=== PATIENT | female | born 1985 | race Caucasian/White ===

== ENCOUNTER 2016-11-09 18:11 | Inpatient (IN) | payer OTHER ==
[~2016-11-09] VITALS: Ht 162.6 cm; Wt 61.5 kg
[~2016-11-09 18:11] MED LIST: CLIN-78 PO
[2016-11-09 18:22] VITALS: BP 149/92; PULSE 106; RESP 20; O2SAT 99
--- NOTE | 2016-11-09 19:10 | ED.REPORT ---
HPI-Extremity Problem Upper Date of Service Nov 09, 2016 ED Provider: Debbie Gallegos History of Present Illness: stuck finger on something in carpet 3 days ago right hand 3 finger. now swollen with red streak in palm. primary care is no , unknown tdap. right hand dominant, 8/10 with movement 3/10 with no movement. denies shooting in finger. patient states she want treatment options Nursing Notes Stated Complaint: FINGER LACERATION Chief Complaint: Extremity Trauma Nursing Notes Reviewed: Yes Allergies: Coded Allergies: No Known Allergies (Unverified , 09/16/16) Scheduled Clindamycin (Clindamycin) 300 Mg Capsule 300 MG PO QID General Time Seen by MD: 19:08 Chief Complaint Finger injury right 3 Hx Obtained From: Patient Caused by: Accidental Past Medical History Past Medical History IV drug use- heroin Past Surgical History denies Smoking History Current Every Day Smoker (1 pack a day for 10 years) Social History Alcohol Use: "Social" Drug Use: IV drugs, Other (last use at 3 pm today 11/09/2016) Occupation lives by self, 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 Ambulatory Status Independent Review of Systems Basic Review of Systems Eyes: Vision NL, No discharge ENT: Hearing NL, No pain, No nasal congestion, No pharyngeal pain Respiratory: No shortness of breath, No cough, No wheeze Cardiovascular: No chest pain, No dyspnea on exertion, No orthopnea, No parox noct dyspnea, No palpitations GI: No abdominal pain, No anorexia, No nausea, No vomiting : No dysuria, No frequency Hematologic: No bleeding, No bruising Endocrine: No cold intolerance, No heat intolerance, No weight gain, No weight loss Allergy / Immune: No allergy Psychiatric: Normal thought content Physical Exam Initial Vital Signs Vital Signs (First) Date Time Temp Pulse Resp B/P Pulse Ox O2 Delivery O2 Flow Rate FiO2 11/09/16 18:22 36.9 106 20 149/92 99 Room Air Initial VS: Reviewed, Vital signs abnormal General/Constitutional: Well-developed, Well-nourished Head / Eyes: Atraumatic, Normocephalic, PERRL ENT: Mucous membranes moist, Conjunctiva normal, No scleral icterus Neck: Supple, Non-tender, Full range of motion Respiratory: Breath sounds normal, Clear to auscultation, No respiratory distress Cardiovascular: Regular rate & rhythm, Heart sounds normal, Intact distal pulses Abdomen / GI: Soft, Non-tender, No guarding, No rebound, No distention Back: No CVA tenderness Lymphatic: No lymphadenopathy Lower Extremities: Vascular intact, Neuro intact, No swelling, No tenderness Skin: Warm, Dry, No cyanosis Neurologic: Alert, Oriented, Nonfocal Psychiatric: Mood/affect normal, Behavior normal, Normal thought content General/Constitutional: Awake, Alert, No acute distress Appearance / Presentation: Positive: Appears older than age Respiratory / Chest: Atraumatic, Breath sounds NL, Breath sounds = bilat, No respiratory distress Cardiovascular: Heart rate NL, Regular rhythm, Heart sounds NL, No gallop refusing to show arms right third finger is obviously swollen with erthyma from puncture wound into palm. no obvious floutance, patient does have limited movement but with pain Interpretation & Diagnostics Lab Results Interpretation Result Diagram: 11/09/16195411/09/161954 Test 11/09/16 19:55 White Blood Count 9.5th/mm3 (3.8-10.1) Red Blood Count 4.51mil/mm3 (3.90-5.20) Hemoglobin 11.9g/dL (12.0-15.6) Hematocrit 36.2% (35.0-46.0) Mean Corpuscular Volume 80.3fL (81-100) Mean Corpuscular Hemoglobin 26.4pg (27.0-35.0) Mean Corpuscular Hemoglobin Concent 32.9% (32.0-37.0) Red Cell Distribution Width 15.1% (12.3-15.4) Platelet Count 292bil/L (150-400) Neutrophils (%) (Auto) 71.3% (40-74) Lymphocytes (%) (Auto) 20.8% (14-46) Monocytes (%) (Auto) 6.9% (4-12) Eosinophils (%) (Auto) 0.7% (0-5) Basophils (%) (Auto) 0.2% (0-3) Erythrocyte Sedimentation Rate 31mm/hr (0-32) Sodium Level 138mEq/L (134-144) Potassium Level 4.0mEq/L (3.5-5.2) Chloride Level 100mEq/L (97-108) Carbon Dioxide Level 21mmol/L (18-29) Blood Urea Nitrogen 11mg/dL (6-20) Creatinine 0.62mg/dL (0.57-1.00) Estimat Glomerular Filtration Rate 162mL/min (>59) Glucose Level 105mg/dL (60-99) Calcium Level 9.4mg/dL (8.5-10.1) Total Bilirubin 0.4mg/dL (0.0-1.2) Aspartate Amino Transf (AST/SGOT) 18U/L (0-50) Alanine Aminotransferase (ALT/SGPT) 14U/L (0-32) Alkaline Phosphatase 51U/L (25-150) C-Reactive Protein 4.9mg/dL (0.0-0.5) Total Protein 7.3g/dL (6.4-8.4) Albumin 4.0g/dL (3.4-5.0) X-Ray Interpretation Xray Interpretation: FINDINGS: Bones: No fractures or dislocations. No suspicious bony lesions. Soft tissues: No suspicious soft tissue calcifications. Soft tissue swelling of the third digit. IMPRESSION: No fracture or dislocation. Soft tissue swelling of the third finger. Procedures Peripheral / EJ IV Start Peripheral / EJ IV Start: left internal ej placed by Dr. Fernandez Re-Eval/Medical Decision Med Decision/Clinical Course Discussed with Dr. Fernandez. Also Dr. Eddy and Dr. Montenegro, admit to hospital, NPO after midnight with likely surgery in the am. MONEY ROOM SUPERVISOR to see patient in the hospital for treatment options on discharge. Patient awaitng transport to room. Care turned over to Dr. Fernandez. Discharge & Departure Impression: Primary Impression: Finger infection Disposition: ADMITTED TO HOSPITAL Referrals: NOPCP (PCP) EDSupervising Provider for APC: Raleigh Fernandez MD, Sue ARNP Nov 09, 2016 19:10
[2016-11-09] MEDS ORDERED: cefTRIAXone Inj 1,000 MG, Lidocaine PF 1% Inj 2.1 ML in Syringe 0 EACH IM ONE (19:25)
[2016-11-09] MEDS ORDERED: Vancomycin Inj 1,000 MG in IV Premix 1 EACH IV ONE (19:25)
[2016-11-09] MEDS ORDERED: 0.9% Sodium Chloride 1,000 ML IV ONE (19:25)
[2016-11-09] MEDS ORDERED: TdaP Vaccine 0.5 mL Inj IM ONE (19:30)
[2016-11-09 20:08] LABS: BASOPHILS % (AUTO) 0.2 % (0-3); EOSINOPHILS % (AUTO) 0.7 % (0-5); MONOCYTES % (AUTO) 6.9 % (4-12); Mean Corpuscular Hemoglobin 26.4 pg (27.0-35.0); Mean Corpuscular Volume 80.3 fL (81-100); NEUTROPHILS % (AUTO) 71.3 % (40-74); Platelet Count 292 bil/L (150-400)
--- NOTE | 2016-11-09 20:33 | DRSVH ---
PROCEDURE: X-RAY FINGERS, TWO VIEWS INDICATIONS: finger laceration TECHNIQUE: AP hand, 2 views of the third finger(s) acquired. COMPARISON: None. FINDINGS: Bones: No fractures or dislocations. No suspicious bony lesions. Soft tissues: No suspicious soft tissue calcifications. Soft tissue swelling of the third digit. IMPRESSION: No fracture or dislocation. Soft tissue swelling of the third finger. Dictated by: Didier Hatfield M.D. on 11/09/2016 at 20:31 Approved by: Didier Hatfield M.D. on 11/09/2016 at 20:32
[2016-11-09 20:38] LABS: ERYTHROCYTE SEDIMENTATION RATE 31 mm/hr (0-32)
[2016-11-09] MEDS ORDERED: Polyethylene Glycol (PEG) 17 Gm Powder PO PRN (21:05)
[2016-11-09] MEDS ORDERED: Ondansetron 2 mg/mL 2 mL Inj IVPUSH PRN (21:05)
[2016-11-09] MEDS ORDERED: Alum-Mag Hydrox-Simeth 30 mL Suspension PO PRN (21:05)
[2016-11-09] MEDS ORDERED: Promethazine 25 mg/mL Inj IVPUSH PRN (22:10)
[2016-11-09] MEDS ORDERED: HYDROmorphone 1 mg/mL Inj IVPUSH PRN (22:10)
[2016-11-09] MEDS ORDERED: HYDROmorphone 1 mg/mL Inj IVPUSH ONE (22:20)
--- NOTE | 2016-11-09 22:40 | PCM.HPMED ---
Subjective Date of Service Nov 09, 2016 Primary Provider: Admitting Physician: Primary Care Physician: Xander Attending Physician: Admit Status: From the Emergency Department, Full Admit Chief Complaint: IV drug use and tenosynovitis. . History of Present Illness: Snow Salcedo is a 31-year-old female with past medical history significant for IV heroin use with last use today at 3 PM who presents to [facility] for right third digit pain. She reports that she stuck her right third finger on something in the carpet 3 days ago. She reports that it became painful the next day. She tried to soak it in Epsom salt bath which gave her no relief and she had mild brown exudate from inoculation site. She decided to come to the emergency department as she believed it was getting worse. She now has a swollen third right digit with red streaking to palm. She is right-hand dominant. She reports +8/10 pain with movement and + 3/10 with no movement. She has tried ibuprofen and tramadol without relief. It is unknown when her last Tdap vaccination was given as she has no PCP. She denies headache, chest pain, shortness of breath, abdominal pain, nausea, vomiting, fever, chills, dysuria, diarrhea or constipation. Vital signs in the ER: Temperature 36.9. Pulse 106. Respiratory rate 20. Blood pressure 149/92. Pulse ox 99% on room air. She was given ceftriaxone 1 g 1, vancomycin per pharmacy x 1, and 1L NS. Review of Systems: A comprehensive review of systems was conducted with the patient and found to be negative except as above in the History of Present Illness. . Allergies Coded Allergies: No Known Allergies (Unverified , 09/16/16) Home Medications No scheduled medications. Ibuprofen 600 mg as needed for pain. Tramadol 50 mg every 6 hours as needed for pain. PMH 1. IV heroin use. 2. Tobacco use disorder. 3. Prior MSSA arm abscesses. . Surgical History None. . Family History Mother and father who are healthy. Brother with alcohol abuse history. . Social History Occupation: runs a cleaning business Hx Alcohol Use: Yes (occasional) Hx Substance Use: Yes (IV heroin) Smoking Status: Current Every Day Smoker (1 PPD 12 years) Additional Information She is single and has no children of her own. She was born in [facility] has grown up. Exam Vital Signs Vital Sign - Last Date Time Temp Pulse Resp B/P Pulse Ox O2 Delivery O2 Flow Rate FiO2 11/09/16 18:22 36.9 106 20 149/92 99 Room Air Exam General: Young female lying in bed, shivering, in no acute distress, well- developed, well-nourished, appropriately interactive. HEENT: Normocephalic, atraumatic. External ears without defect. Pupils equal, round, and reactive to light. Anicteric sclerae, moist conjunctivae, and no lid lag. Oropharynx free of erythema and cobble stoning with moist mucosa. Neck: Supple with full range of motion. No lymphadenopathy or thyromegaly. Cardiovascular: Tachycardic, regular rhythm without murmurs, rubs, or gallops appreciated Pulmonary: Clear to auscultation bilaterally with no crackles, wheezes, or rhonchi. Normal respiratory effort with no use of accessory muscles. Abdomen: Soft, nontender, nondistended, bowel sounds present. No hepatosplenomegaly or masses appreciated. Extremities: Right hand erythema and warmth with streaking to palm. Pain with passive and active range of motion of third right digit. Skin: Scattered excoriations throughout upper and lower extremities. Neurological: Cranial nerves grossly intact. Normal muscle strength, tone, and bulk. Reflexes, coordination, and sensory function within normal limits. No known gait impairment. Psychiatric: Normal mood and affect. Alert and oriented to person, place, and time. . Lab and Diagnostics Labs Item Value Date Time Calcium Level 9.4 mg/dL 11/09/161954 Total Bilirubin 0.4 mg/dL 11/09/161954 Aspartate Amino Transf (AST/SGOT) 18 U/L 11/09/161954 Alanine Aminotransferase (ALT/SGPT) 14 U/L 11/09/161954 Alkaline Phosphatase 51 U/L 11/09/161954 C-Reactive Protein 4.9 mg/dL H 11/09/161954 Total Protein 7.3 g/dL 11/09/161954 Albumin 4.0 g/dL 11/09/161954 Result Diagram: 11/09/16195411/09/161954 Microbiology Blood culture 2 pending. . X-Rays, CTs and MRIs X-RAY FINGERS, TWO VIEWS IMPRESSION: No fracture or dislocation. Soft tissue swelling of the third finger. Dictated by: Didier Hatfield M.D. on 11/09/2016 at 20:31 Approved by: Didier Hatfield M.D. on 11/09/2016 at 20:32 . Assessment & Plan Snow Salcedo is a 31-year-old female with past medical history significant for IV heroin use with last use today at 3 PM and skin popping who presents to [facility] for right third digit pain. 1. Acute tenosynovitis of right third digit, present on admission. Active. - Patient presented afebrile with right hand erythema and warmth especially in the right third digit with streaking to palm.Patient has pain with active and passive range of motion. - Patient received Rocephin and vancomycin in the ED and will continue these antibiotics. - Right finger x-ray shows no signs of osteomyelitis. - Continue to elevate arm overnight. - NPO after midnight. - Ordered tramadol, acetaminophen, and ibuprofen as needed for pain. Try and avoid narcotics as this is the patient's underlying issue, however, ordered Dilaudid 1 mg every 4 hours as needed for moderate to severe pain. - Tdap vaccination has been ordered. - Orthopedic hand surgeon, Dr. Bobo, has been consulted and recommends the patient be nothing by mouth overnight for planned surgical debridement in the morning. Chronic problems: IV heroin use, chronic. - Counseled the patient on importance of cessation of drug use and seeking treatment, inpatient versus outpatient. - Ordered hospital social worker evaluation. - Ordered Zofran and promethazine as needed for nausea related to heroin withdrawal. - Ordered Ativan 1 mg every 4 hours as needed for signs of withdrawal (i.e. nausea, vomiting, diarrhea, rhinorrhea, etc.). If the patient continues to show signs and symptoms of withdrawal that are unamenable to Ativan may consider starting methadone 20-30 mg daily and clonidine 0.1 BID. PRN antiemetics: Zofran and promethazine.. PRN bowel regimen: Senna and MiraLAX. PRN analgesics: Tylenol, ibuprofen, tramadol, Dilaudid. PRN anxiolytics: Ativan. High-risk medications: Dilaudid. Patient is admitted under inpatient status with expected length of stay greater than 2 midnights due to severity of presenting symptoms, risk of adverse event, and complexity of treatment plan. Resuscitation Status: CPR: Attempt Resuscitation Attending Statement The patient was seen and examined together with house staff on 11/09/2016 and I agree with the history, exam and plan as outlined in the note above. Ute Vidal DO Nov 09, 2016 21:20 Ada Hicks DO Nov 09, 2016 23:10
[2016-11-09] MEDS ORDERED: Promethazine Inj 25 MG in Dextrose 5% 50 ML IV PRN (22:55)
[2016-11-09 23:03] VITALS: BP 126/67; PULSE 69; RESP 18; O2SAT 100
--- NOTE | 2016-11-09 23:41 | PCM.CONPHA ---
Subjective Date of Service: Nov 09, 2016 Requesting Provider: Ute Vidal DO IV drug use and tenosynovitis. . Reason for Pharmacy Consult: Vancomycin Dosing Objective Vital Signs Date Time Temp Pulse Resp B/P Pulse Ox O2 Delivery O2 Flow Rate FiO2 11/09/16 23:03 37.2 69 18 126/67 100 Room Air 11/09/16 21:38 37.1 91 20 123/69 99 Room Air 11/09/16 18:22 36.9 106 20 149/92 99 Room Air Weight (Kilograms): 61.500 Height (Feet): 5 Height (Inches): 4.00 Test 11/09/16 19:45 11/09/16 19:55 11/09/16 23:14 HCG Beta Subunit 0.500mIU/mL White Blood Count 9.5th/mm3 (3.8-10.1) Red Blood Count 4.51mil/mm3 (3.90-5.20) Hemoglobin 11.9g/dL (12.0-15.6) Hematocrit 36.2% (35.0-46.0) Mean Corpuscular Volume 80.3fL (81-100) Mean Corpuscular Hemoglobin 26.4pg (27.0-35.0) Mean Corpuscular Hemoglobin Concent 32.9% (32.0-37.0) Red Cell Distribution Width 15.1% (12.3-15.4) Platelet Count 292bil/L (150-400) Neutrophils (%) (Auto) 71.3% (40-74) Lymphocytes (%) (Auto) 20.8% (14-46) Monocytes (%) (Auto) 6.9% (4-12) Eosinophils (%) (Auto) 0.7% (0-5) Basophils (%) (Auto) 0.2% (0-3) Erythrocyte Sedimentation Rate 31mm/hr (0-32) Sodium Level 138mEq/L (134-144) Potassium Level 4.0mEq/L (3.5-5.2) Chloride Level 100mEq/L (97-108) Carbon Dioxide Level 21mmol/L (18-29) Blood Urea Nitrogen 11mg/dL (6-20) Creatinine 0.62mg/dL (0.57-1.00) Estimat Glomerular Filtration Rate 162mL/min (>59) Glucose Level 105mg/dL (60-99) Calcium Level 9.4mg/dL (8.5-10.1) Total Bilirubin 0.4mg/dL (0.0-1.2) Aspartate Amino Transf (AST/SGOT) 18U/L (0-50) Alanine Aminotransferase (ALT/SGPT) 14U/L (0-32) Alkaline Phosphatase 51U/L (25-150) C-Reactive Protein 4.9mg/dL (0.0-0.5) Total Protein 7.3g/dL (6.4-8.4) Albumin 4.0g/dL (3.4-5.0) Hold Urine Received (Received) Assessment/Plan Assessment/Plan A: * Vancomycin dosing by pharmacy for 31 y/o woman with tenosynovitis * She received a 1000 mg IV vancomycin dose in the ED * She is also on ceftriaxone * Estimated CrCl is 115 mL/min (Cockcroft & Gault) * Estimated vancomycin half-life is 7 hours and estimated Vd is 43 liters P: * Start the patient on vancomycin 750 mg IV every 8 hours * This dose is estimated to result in a trough of about 15 mcg/mL * Target a vancomycin trough range of 15 - 20 mcg/mL for now * Drawing at trough level prior to the fourth vancomycin dose Thank you. Pharmacy will continue to follow. Moira Kwon, PharmD Moira Kwon Nov 09, 2016 23:41
[2016-11-10] VITALS (9 sets, daily range): BP systolic 95–138; BP diastolic 47–95; PULSE 65–91; RESP 12–20; O2SAT 96–100
--- NOTE | 2016-11-10 00:59 | NUR ---
ADMIT Patient arrived on unit at 2300 via wheelchair, arrived with belongings and a visitor, Radu, whom provides moral support. This RN received report previous to arrival by phone from AVID EDITOR. Behavior contract signed, agreed to treatment. Sharps container removed by housekeeping and security, per protocol. quality assurance assistant oriented patient to bed, lights (including call light), and phone.
[2016-11-10] MEDS ORDERED: MetoCLOpramide 5 mg/mL 2 mL Inj ONE (02:59)
[2016-11-10] MEDS ORDERED: Propofol 10,000 mCg/mL 20 mL Inj ONE (02:59)
[2016-11-10] MEDS ORDERED: Dexamethasone 4 mg/mL Inj ONE (02:59)
[2016-11-10] MEDS ORDERED: Ondansetron 2 mg/mL 2 mL Inj ONE (02:59)
--- NOTE | 2016-11-10 04:08 | NUR ---
BEHAVIOR Patient awoke screaming, "I can't do this!!" This RN spoke with patient and expressed concerns of leaving AMA, educated about possible consequences. Patient calmed down but remains easily agitated.In addition to educating possible consequences of leaving, this RN also educated on the medications given.
[2016-11-10] MEDS ORDERED: fentaNYL-PF 50 mCg/mL 2 mL Inj ONE (04:59)
[2016-11-10] MEDS ORDERED: Ketamine 10 mg/mL 20 mL Inj ONE (04:59)
[2016-11-10] MEDS ORDERED: HYDROmorphone 2 mg/mL Inj ONE (04:59)
[2016-11-10] MEDS ORDERED: 0.9% Sodium Chloride 250 ML ONE (06:18)
[2016-11-10] MEDS: HYDROmorphone 1 mg/mL Inj IVPUSH PRN ×7 (06:39→22:10)
[2016-11-10] MEDS ORDERED: Pantoprazole 4 mg/mL 10 mL Inj IVPUSH SCH (07:30)
[2016-11-10 08:04] LABS: BASOPHILS % (AUTO) 0.4 % (0-3); EOSINOPHILS % (AUTO) 0.8 % (0-5); MONOCYTES % (AUTO) 7.7 % (4-12); Mean Corpuscular Hemoglobin 25.9 pg (27.0-35.0); NEUTROPHILS % (AUTO) 61.8 % (40-74); Platelet Count 332 bil/L (150-400)
[2016-11-10] MEDS ORDERED: Vancomycin Dose per Pharmacist XX SCH (08:30)
[2016-11-10] MEDS ORDERED: cefTRIAXone Inj 1,000 MG in Dextrose 5% Minibag Plus 50 ML IV SCH (08:30)
[2016-11-10] MEDS: Heparin 5,000 Unit/mL Inj SUBQ SCH ×2 (08:30→16:27)
[2016-11-10] MEDS: cloNIDine 0.1 mg Tablet PO PRN ×2 (11:46→22:10)
[2016-11-10] MEDS ORDERED: Lactated Ringer's 500 ML IV PRN (12:56)
[2016-11-10] MEDS ORDERED: Lactated Ringer's 1,000 ML IV SCH (12:56)
--- NOTE | 2016-11-10 12:59 | PCM.HPANE ---
Patient Data Surgeon Admitting Provider:Ada Hicks DO Attending Provider:Ada Hicks DO Primary Care Physician:Nopcp Other Provider: Reason for Visit Tendon Sheath Ifection Ht/WT & BMI Height (Feet): 5 Height (Inches): 4.00 Weight (Kilograms): 61.500 Body Mass Index 23.15 Allergies Coded Allergies: No Known Allergies (Unverified , 09/16/16) Diabetes History Hx Diabetes?: No MRSA MRSA: No Medications Hypertension Medication: No Home Meds Incl Beta Dvaid: No Discontinued Scripts Clindamycin 300 Mg [id number] Mg PO QID 14 Days Ref 0 Prov:Amrit Shah MD 09/16/16 History History of ENT Problems?: No Hx of Heart Problems?: No Cardiovascular History: Denies:: Congestive Heart Failure Hypertension Respiratory History: Positive for:: Asthma (excersise induced) Denies:: Tuberculosis Hx Neurologic Problems?: No Neurological History: Positive for:: Headaches (c/o migraines) Hx of GI Problems?: No Hx of Problems?: No Female Hx: Denies:: Currently Pelvic Inflammatory Problems with Breasts? Musculoskeletal History: Positive for:: Back Injury (bulging disk) Psycho Social History: Positive for:: Anxiety Hx Depression Denies:: Suicide Attempt Hx Surgeries?: No Hx Any Other Health Problems?: No History Blood Transfusions: Positive for:: Accept Blood Products? 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 Hx Alcohol Use: NoHx Substance Use: Yes (Heroin) Smoking Status: Current Every Day Smoker (1 PPD 12 years) Have You Smoked inLast 12 mo: YesApprox How Many Cigarettes/day: 20 Stop/Bang Treated for Sleep Apnea?: No Do You Have a CPAP Machine?: No S-Snoring: Do You Snore Loudly: No T-Tired: feel tired, fatigued: Yes O-Obsered: Observed not breath: Yes P-Blood Pressure: treated: No B- Body Mass Index > 35 kg/m2: No A- Age over 50: No N- Neck Large Circumference: No G- Gender Male: No QUYEN Total Score: 2 Risk Assessment Category Category 1A: Patient has history of documented sleep apnea, and HAS NOT received any narcotic, sedative or anesthesia administration during this stay. Category 1B: Patient has history of documented sleep apnea, and HAS received any narcotic , sedative or anesthesia administration during this stay Category 2: Patient has SUSPECTED Obstructive Sleep Apnea, and HAS received any narcotic , sedative or anesthesia administration during this stay. Category 3: Patient has SUSPECTED Obstructive Sleep Apnea and HAS NOT received narcotic, sedative or anesthesia administration during this stay. Category 4: Outpatient in Procedural Areas with known sleep apnea or who screen positive for High Risk via the STOP/BANG questionnaire. Exam Exam Vital Signs Vital Signs Date Time Temp Pulse Resp B/P Pulse Ox O2 Delivery O2 Flow Rate FiO2 11/10/16 06:25 37.0 85 18 138/95 98 Room Air General Appearance: Oriented X3, Moderate Distress HEENT/AIRWAY: MP 2 Lungs: Coarse Heart: Regular Rate/Rhythm Meds/Labs/Diagnostics Admission Meds Current Medications Vancomycin HCl/ Dextrose 1000 mg/ Premix 200 ml @ 133.333 mls/hr ONCE ONCE IV Last administered on 11/09/16 19:25; Start 11/09/16 at 19:25; Stop 11/09/16 at 20:54; Status DC Sodium Chloride (Normal Saline) 1,000 ml @ 0 mls/hr Q0M ONCE IV Last administered on 11/09/16 19:25; Start 11/09/16 at 19:25; Stop 11/09/16 at 19:30 ; Status DC Lidocaine HCl 1 ml 1 ml STK-MED ONCE .ROUTE Last administered on 11/09/16 19: 45; Start 11/09/16 at 19:45; Stop 11/09/16 at 19:46; Status DC Ceftriaxone Sodium/Dextrose/ Water (Rocephin Inj/ D5W Minibag Plus) 50 ml @ 100 mls/hr Q24 IV Last administered on 11/09/16 20:58; Start 11/10/16 at 08:30 Hydromorphone HCl (Dilaudid Inj) 2 mg ONCE ONCE IVPUSH Last administered on 22:28; Start 11/09/16 at 22:20; Stop 11/09/16 at 22:21; Status DC Pantoprazole (Protonix Inj) 40 mg DAILYAC IVPUSH Last administered on 08:27; Start 11/10/16 at 07:30 Pharmacy Consult 1 ea 1 ea DAILY XX Last administered on 11/10/16 09:13; Start 11/10/16 at 08:30 Vancomycin HCl/ Dextrose/Water (Vancocin Inj/ D5W) 250 ml @ 166.667 mls/hr Q8H IV Last administered on 11/10/16 06:26; Start 11/10/16 at 05:00 Nicotine (Nicoderm 21 mg/ 24 Hr Patch) 1 patch DAILY TOPICAL Last administered on 11/10/16 03:23; Start 11/10/16 at 00:35 Methadone HCl (Dolophine) 20 mg ONCE ONCE PO Last administered on 11/10/16 03 :30; Start 11/10/16 at 00:40; Stop 11/10/16 at 00:42; Status DC Diphenhydramine HCl 25 mg 25 mg ONCE ONCE IVPUSH Last administered on 03:30; Start 11/10/16 at 00:45; Stop 11/10/16 at 00:46; Status DC Sodium Chloride (Normal Saline) 250 ml @ ud STK-MED ONCE .ROUTE Last administered on 11/10/16 06:25; Start 11/10/16 at 06:18; Stop 11/10/16 at 06:20 ; Status DC Labs Test 11/09/16 19:45 11/09/16 19:55 11/09/16 23:14 11/10/16 07:45 HCG Beta Subunit 0.500mIU/mL Erythrocyte Sedimentation Rate 31mm/hr (0-32) Total Bilirubin 0.4mg/dL (0.0-1.2) Aspartate Amino Transf (AST/SGOT) 18U/L (0-50) Alanine Aminotransferase (ALT/SGPT) 14U/L (0-32) Alkaline Phosphatase 51U/L (25-150) C-Reactive Protein 4.9mg/dL (0.0-0.5) Total Protein 7.3g/dL (6.4-8.4) Albumin 4.0g/dL (3.4-5.0) Hold Urine Received (Received) White Blood Count 9.8th/mm3 (3.8-10.1) Red Blood Count 4.41mil/mm3 (3.90-5.20) Hemoglobin 11.4g/dL (12.0-15.6) Hematocrit 35.3% (35.0-46.0) Mean Corpuscular Volume 80.0fL (81-100) Mean Corpuscular Hemoglobin 25.9pg (27.0-35.0) Mean Corpuscular Hemoglobin Concent 32.3% (32.0-37.0) Red Cell Distribution Width 15.2% (12.3-15.4) Platelet Count 332bil/L (150-400) Neutrophils (%) (Auto) 61.8% (40-74) Lymphocytes (%) (Auto) 28.9% (14-46) Monocytes (%) (Auto) 7.7% (4-12) Eosinophils (%) (Auto) 0.8% (0-5) Basophils (%) (Auto) 0.4% (0-3) Sodium Level 142mEq/L (134-144) Potassium Level 4.6mEq/L (3.5-5.2) Chloride Level 109mEq/L (97-108) Carbon Dioxide Level 20mmol/L (18-29) Blood Urea Nitrogen 10mg/dL (6-20) Creatinine 0.67mg/dL (0.57-1.00) Estimat Glomerular Filtration Rate 148mL/min (>59) Glucose Level 123mg/dL (60-99) Calcium Level 8.9mg/dL (8.5-10.1) Plan Impression Patient chart reviewed, patient interviewed and anesthestic plan with risks, benefits, and alternatives discussed, and informed consent obtained. ASA Physical Status: ASA3 Severe Disease Anesthetic Plan: GA Bene/Risks/Altern/Consents: Yes HP Complete Prior to Induction: Yes Edwin Nael MD Nov 10, 2016 12:59
[2016-11-10] MEDS ORDERED: Phenylephrine 10,000 mCg/mL Inj IVPUSH PRN (13:00)
[2016-11-10] MEDS ORDERED: Ondansetron 2 mg/mL 2 mL Inj IVPUSH PRN (13:00)
[2016-11-10] MEDS ORDERED: HYDROmorphone 1 mg/mL Inj IVPUSH PRN (13:00)
[2016-11-10] MEDS ORDERED: Dexamethasone 4 mg/mL Inj IVPUSH PRN (13:00)
[2016-11-10] MEDS ORDERED: EPHEDrine Sulfate 50 mg/mL Inj IVPUSH PRN (13:00)
[2016-11-10] MEDS ORDERED: fentaNYL-PF 50 mCg/mL 2 mL Inj IVPUSH PRN (13:00)
[2016-11-10] MEDS ORDERED: MetoCLOpramide 5 mg/mL 2 mL Inj IVPUSH PRN (13:00)
--- NOTE | 2016-11-10 13:21 | NUR ---
Behavior/OR Pt very agitated and yelling "I can't do this anymore! Get me the fuck out of here, I'm going home!" off and an all day. Pt's friend at bedside and intermittently able to redirect and calm pt. Pt received prn dilaudid, lorazepam, and clonidine as often as needed and orders allowed. Pt up out of bed, pacing in room and in hallway; gait steady. VSS. Pt NPO since 0000. Pt left floor for OR at 1321, report given to RECYCLABLE MATERIALS SORTER.
[2016-11-10] MEDS ORDERED: Lactated Ringer's 1,000 ML IV ONE (13:31)
--- NOTE | 2016-11-10 14:48 | PCM.ANEP1 ---
Post Anesthesia Phase 1 PACU Phase 1 Assessment Date of Service: Nov 09, 2016 Anesthetic Administered: GA Level of Alertness: Awake, talking Pain: No Pain Scale Score: 10 Nausea or Vomiting: No Oxygen Delivery: Room Air Lungs: Coarse Edwin Neal MD Nov 10, 2016 14:48
--- NOTE | 2016-11-10 14:48 | PCM.ANEP2 ---
Post Anesthesia Evaluation ASA/CMS Post Anesthesia VS in Patient's Normal Range?: Yes Resp Stable; Airway Patent?: Yes CV Function & Hydration Stable: Yes Mental Status Recovered?: Yes Pain control Satisfactory?: Yes N/V Control Satisfactory?: Yes Edwin Neal MD Nov 10, 2016 14:48
[2016-11-10] MEDS ORDERED: diphenhydrAMINE 25 mg Capsule PO PRN (14:55)
[2016-11-10] MEDS ORDERED: Magnesium Hydroxide 10 mL Oral Concentration PO PRN (14:55)
[2016-11-10] MEDS ORDERED: Sodium Biphos-Phos 133 mL Enema RECTAL PRN (14:55)
[2016-11-10] MEDS ORDERED: Polyethylene Glycol (PEG) 17 Gm Powder PO PRN (14:55)
--- NOTE | 2016-11-10 15:36 | NUR ---
Social Work: Brief Note Data and Assessment: Patient is a 31 y/o female that admitted for tendon infection. Patient has a history of heroin and crack use. SW unable to complete CD assessment due to patient's behaviors, withdrawal, and patient was off of the floor for surgery later in the day. SW will continue to follow patient. Plan: SW will continue to follow patient and attempt to complete CD assessment when the patient returns to the floor. Risa Park LMSW, NYDIA
[2016-11-10] MEDS: Sodium Chloride LOK Flush 10 mL Syringe IV SCH (16:23)
--- NOTE | 2016-11-10 17:03 | CONS ---
[address] [address] CONSULTATION REPORT PATIENT: RENE VICK : 1985 MR#: [id number] ADMIT: 11/09/2016 JOB ID: [id number] DATE OF SERVICE: 11/10/2016 ORTHOPEDIC CONSULT: CHIEF COMPLAINT: Right hand and middle finger pain and swelling. HISTORY OF PRESENT ILLNESS: This is a 31-year-old, [id number] female that presented yesterday to [facility] with swelling and pain to her hand and specifically her right middle finger. She states that she stuck her middle finger with something in the carpet. She denies that it was a needle and she does utilize heroin and used it just yesterday. She tried to soak the wound in Epsom salt and noticed some purulent drainage. Eventually, the drainage became clear and progressively worsened as far as swelling and pain and thus she presented to the emergency department. She complains mainly of pain to the middle finger with limited motion. She denies any numbness or tingling. She denies any constitutional symptoms. Denies any fever, sweats or chills. Our only treatment has been over the counter medications including ibuprofen and tramadol. She states that the pain is rated 8/10 in severity. She has noticed mild improvement in her symptoms since her hospitalization and being started on IV antibiotics. PAST MEDICAL HISTORY: IV heroin use. PAST SURGICAL HISTORY: Negative. FAMILY HISTORY: Negative and noncontributory. SOCIAL HISTORY: Patient does utilize tobacco, alcohol, as well as heroin. She last used heroin yesterday. REVIEW OF SYSTEMS: The patient denies any fevers, sweats, chills, chest pain, shortness of breath, nausea, vomiting, diarrhea. Complains mainly of right hand pain and swelling as described in history of present illness. PHYSICAL EXAMINATION: General: The patient is alert, mildly agitated during the examination. She states several times that she just wants to leave the hospital so she can get back to use and away from having withdrawals. HEENT: Normocephalic, atraumatic. Extraocular movements intact. Nares patent. Lungs: No audible wheezes. No overt signs of respiratory stress. Neuro: Cranial nerves 2-12 are intact. Extremities: On gross observation of the patient's right hand, there is a moderate swelling and erythema to the hand most localized to the middle finger. There is tenderness along the flexor tendon sheath with a mildly flexed posture. There is fusiform swelling and also fluctuance appreciated dorsally. The patient's fingers are well perfused with intact sensation. She has limited motion of the finger secondary to reproduction of pain. Again, mainly localized to the middle finger. DIAGNOSTIC STUDIES: Two views of the patient's right middle finger were obtained. Yesterday, in the emergency department, demonstrated no acute fractures or dislocations. There is soft tissue swelling appreciated. Labs upon admission demonstrate a white count of 9.5, and a CRP that is elevated at 4.9. IMPRESSION: Right middle finger cellulitis and abscess with possible flexor tenosynovitis. PLAN: The patient was discussed in length her diagnosis. I explained to her the importance of having the surgery and also staying to have the appropriate IV antibiotics and also awaiting for the definitive cultures before being discharged on p.o. antibiotics. She states that she has a hard time thinking that she will be able to stay past this evening. I again explained to her the risks include but are not limited to, neurovascular injury, tendon injury, infection, loss of life and limb if she does choose to leave and does not stay to help resolve the infection. She stated she would like to proceed with the surgical procedure and determined if she will stay afterwards. The patient had all questions answered. Consent was signed and placed in the chart. Optimally, the patient should be in the hospital for a minimum of 48 hours with IV antibiotics following surgery, and await definitive cultures before being discharged home on p.o. antibiotics.
--- NOTE | 2016-11-10 18:12 | NUR ---
Pt back from OR this afternoon. Continues to be very agitated in between doses of dilaudid and ativan. Frequently yelling at friend in room. Pt states she wants to be "released", this RN educated her that she is not medically cleared to be discharged and if she were to leave it would be against medical advice. Pt continues to complain about having to stay, but does not vocalize wanting to leave AMA. Pt is receiving Q2H prn dilaudid 2mg IV and IV lorazepam 1mg Q3H PRN. Surgical dsgs in tact to BUEs, capillary refil 1-2 seconds, sensation in tact to all fingers able to assess.
--- NOTE | 2016-11-10 18:55 | OP ---
[address] [address] OPERATIVE REPORT PATIENT: RENE VICK : 1985 MR#: [id number] ADMIT: 11/09/2016 JOB ID: [id number] DATE OF SURGERY: 11/10/2016 PREOPERATIVE DIAGNOSIS(ES): Right middle finger cellulitis and abscess. POSTOPERATIVE DIAGNOSIS(ES): 1. Right middle finger flexor tenosynovitis with cellulitis and abscess. 2. Bilateral forearm open wounds. PROCEDURE: 1. Incision and drainage of right middle finger flexor tenosynovitis, abscess and cellulitis. 2. Irrigation and debridement of right forearm wound. 3. Debridement of left forearm wound. SURGEON: César Bobo DO. ANESTHESIA: General. HISTORY: The patient is a 31-year-old female that sustained a puncture wound to her middle finger. She denies it being a needle, although she does utilize heroin and did so yesterday. She presented with increasing pain and swelling to the middle finger with signs of abscess cellulitis with possible flexor tenosynovitis. I discussed with her the risks, benefits, and indications to proceed with an incision and drainage of the right middle finger and possibly hand. She understood the risks include, but not limited to, neurovascular injury, tendon injury, failure to resolve the infection, stiffness, persistent pain all of which require further intervention. Patient had all questions answered. Consent was signed and placed in the chart. PROCEDURE IN DETAIL: The patient was brought to the operative suite and placed supine on the operating table. Surgical time-out was performed. Everyone in the room was in agreement. After appropriate anesthesia was obtained, the patient's right arm had a tourniquet applied to the upper arm. She did demonstrate two dressings to both proximal forearms which were removed. Upon observation, she had two large wounds measuring 7 x 4 cm in dimension to both proximal forearms along the extensor musculature. There was approximately 40% slough tissue to the right forearm wound and 60% slough tissue to the left. There was no purulent drainage appreciated and very minimal surrounding erythema. The right upper extremity was then prepped and draped in a sterile fashion. The patient's right middle finger was approached first with a Kaelyn-type incision along the volar aspect of the middle finger. Dissection was carried down. Care was taken to protect the digital neurovascular bundles. There was gross purulence that emanated from the wound. This area was cultured with aerobic and anaerobic cultures as well as Gram stain. The flexor tendon sheath was identified and opened up at the level of the A3 omar and more purulence emanated from the flexor tendon sheath. Copious irrigation was then performed. Attention was then turned towards the dorsal aspect of the middle finger. A curvilinear incision was made centered at the PIP joint. Dissection was carried down to the extensor tendon. There was murky fluid emanating from the wound with only minimal amount of purulence. Copious irrigation was then performed. Deep quarter-inch Sheridan drains were then applied, one to the volar aspect of the middle finger wound and one to the dorsal. The incisions were then closed with 5-0 nylon in simple interrupted fashion. Attention was then turned towards the right dorsal forearm wound. The slough tissue was debrided with a curette, removing all the surrounding soft tissue until only excellent granulation tissue remained. The area was then dressed with a Xeroform, the right upper extremity then placed into a well-padded, well-molded volar resting splint with the fingers placed in extended position. The patient's left forearm was debrided manually with utilization of a jaws to remove the overlying slough. This was followed by application of Xeroform and a bulky soft dressing. ESTIMATED BLOOD LOSS: Less than 5 cc. COMPLICATIONS: None. DISPOSITION: The patient tolerated the procedure well. Anesthesia was reversed and the patient was transferred back to recovery. POSTOPERATIVE PLAN: The patient will have her drains and the splint removed at postoperative day number one, and have her start initiating range of motion with occupational therapy. She will need to continue on IV antibiotics until definitive cultures return where she can be converted to p.o. antibiotics and discharged home. I would like Wound Care to see and evaluate her for both of her dorsal proximal forearm wounds for dressing changes.
--- NOTE | 2016-11-10 19:38 | PCM.PNMED ---
Subjective Date of Service Nov 10, 2016 Subjective Patient threatened to leave the hospital several times today prior to surgery as she was having cravings for heroin. However, the medical staff including myself and the patient's male friend talked her into staying in the hospital. Patient is craving narcotics preoperatively. Her Dilaudid dose was increased every 2 hours when necessary Exam Vital Signs Vital Sign - Last Date Time Temp Pulse Resp B/P Pulse Ox O2 Delivery O2 Flow Rate FiO2 11/10/16 16:29 75 16 96 Room Air 11/10/16 16:13 36.8 101/75 11/10/16 15:11 8 Intake and Output 11/09/16 11/09/16 11/10/16 Cumulative From/Thru 15:00 23:00 07:00 11/09/16 18:22 - 11/10/16 05:48 Intake Total 300 ml 300 ml Balance 300 ml 300 ml Intake Oral 300 ml 300 ml # Voids 1 1 Exam General: Patient is very agitated and wanting to leave and she is craving heroin. HEENT: Head is atraumatic normocephalic. Eyes: Pupils are pinpoint but equally round and reactive to light and accommodation. Extraocular muscles are intact. Sclera are white anicteric. Subconjunctival mucosa is pink. Ears and nose are unremarkable. Oropharynx: There is no mucosal lesions, there is no thrush, there is no pharyngitis. Neck: Is supple, there are no nodes or masses or tenderness. Chest: Is clear to auscultation and percussion. There are no rales, rhonchi, wheezes or rubs. Heart: Rate, rhythm is regular. There is no murmur, rub or gallop. Abdomen: Good bowel sounds are present. Abdomen is soft, nontender, no organomegaly or masses were appreciated. Extremities: The right hand is markedly swollen and erythematous, especially the right middle finger. She has limited range of motion. Neurologic: There are no focal neurological deficits. Cranial nerves II through XII are intact. There are no sensory or motor deficits. Patient is craving heroin Psychiatric: Patient is craving heroin and wanted more pain medication before her Dilaudid was increased in frequency to every 2 hours, and before her surgery. Genital: Deferred Rectal: Deferred Lab and Diagnostics Result Diagram: 11/10/1645 11/10/16 0745 Microbiology Blood culture 2 pending. . X-Rays, CTs and MRIs X-RAY FINGERS, TWO VIEWS IMPRESSION: No fracture or dislocation. Soft tissue swelling of the third finger. Dictated by: Didier Hatfield M.D. on 11/09/2016 at 20:31 Approved by: Didier Hatfield M.D. on 11/09/2016 at 20:32 . Assessment & Plan Snow Salcedo is a 31-year-old female with past medical history significant for IV heroin use with last use today at 3 PM and skin popping who presents to [facility] Emergency Department for right third digit pain. 1. Acute tenosynovitis of right third digit, present on admission. Active. - Patient presented afebrile with right hand erythema and warmth especially in the right third digit with streaking to palm.Patient has pain with active and passive range of motion. - Patient received Rocephin and vancomycin in the ED and will continue these antibiotics. - Right finger x-ray shows no signs of osteomyelitis. - Ordered tramadol, acetaminophen, and ibuprofen as needed for pain. Dilaudid increased to 1-2 mg every 2 hours as needed for moderate to severe pain. - Tdap vaccination has been ordered. - Orthopedic hand surgeon, Dr. Bobo took the patient to the OR today and his findings are as follows PREOPERATIVE DIAGNOSIS(ES): Right middle finger cellulitis and abscess. POSTOPERATIVE DIAGNOSIS(ES): 1. Right middle finger flexor tenosynovitis with cellulitis and abscess. 2. Bilateral forearm open wounds. PROCEDURE: 1. Incision and drainage of right middle finger flexor tenosynovitis, abscess and cellulitis. 2. Irrigation and debridement of right forearm wound. 3. Debridement of left forearm wound. Chronic problems: IV heroin use, chronic. - Counseled the patient on importance of cessation of drug use and seeking treatment, inpatient versus outpatient. - Ordered social services assistant evaluation. - Ordered Zofran and promethazine as needed for nausea related to heroin withdrawal. - Ordered Ativan 1 mg every 4 hours as needed for signs of withdrawal (i.e. nausea, vomiting, diarrhea, rhinorrhea, etc.). If the patient continues to show signs and symptoms of withdrawal that are unamenable to Ativan may consider starting methadone 20-30 mg daily and clonidine 0.1 BID. PRN antiemetics: Zofran and promethazine.. PRN bowel regimen: Senna and MiraLAX. PRN analgesics: Tylenol, ibuprofen, tramadol, Dilaudid. PRN anxiolytics: Ativan. High-risk medications: Dilaudid. Disposition:The patient will have her drains and the splint removed at postoperative day number one, and have her start initiating range of motion with occupational therapy. She will need to continue on IV antibiotics until definitive cultures return where she can be converted to p.o. antibiotics and discharged home. Wound Care is to see and evaluate the patient for both of her dorsal proximal forearm wounds for dressing changes. Pain Evaluation: Adequate Pain Control GI Prophylaxis: Proton Pump Inhibitor VTE Prophylaxis: Sub-Q Heparin (Unfractionated) Resuscitation Status: CPR: Attempt Resuscitation NessaJason MD Nov 10, 2016 19:38
[2016-11-10] MEDS ORDERED: Senna-Docusate 8.6-50 mg Tablet PO SCH (20:30)
[2016-11-10] MEDS ORDERED: Vancomycin Serum Trough XX ONE ×2 (20:30→23:30)
[2016-11-10] MEDS ORDERED: LORazepam 1 mg Tablet PO ONE (22:25)
--- NOTE | 2016-11-10 22:45 | NUR ---
Agitation Pt very agitated, threatening to leave AMA. Md notified, able to discuss situation with pt and educated on reasons to stay. Pt accepted new dose Ativan and prn pain meds. Able to sleep after admin. Frequent monitoring continues.
[2016-11-11] MEDS: Sodium Chloride LOK Flush 10 mL Syringe IV SCH (00:14)
[2016-11-11] MEDS: HYDROmorphone 1 mg/mL Inj IVPUSH PRN ×2 (00:15→02:25)
[2016-11-11] MEDS: Heparin 5,000 Unit/mL Inj SUBQ SCH (00:16)
--- NOTE | 2016-11-11 00:32 | NUR ---
Yolanda held Yolanda withheld due to concern for infiltration related to "burning pain" with flush of periph neck IV. authorized non-admin. Addendum: 11/11/16 at 0456 by AIDEN WILLOUGHBY RN Pt request administration. Given slowly with concurrent saline, no adverse effects noted.
--- NOTE | 2016-11-11 03:36 | PCM.PHAPRO ---
Progress Date of Service: Nov 11, 2016 Vancomycin dosing by pharmacy for 31 y/o woman O: * Patient was on vancomycin 750 mg IV every 8 hours * Vancomycin trough level of 8.5 mcg/mL prior to the fourth dose * SCr of 0.67 mg/dL 11/10 A: * Trough is likely not at steady-state but is still low * SCr appears stable so far P: * Increase vancomycin dose to 1000 mg IV every 8 hours * Target trough range of 10 - 15 mcg/mL * Drawing another trough level prior to the fourth 1 gram dose * Continue to monitor renal function Thank you. Pharmacy will continue to follow. Moira Kwon, PharmD Moira Kwon Nov 11, 2016 03:36
--- NOTE | 2016-11-11 04:56 | NUR ---
IV access d/c'd. Consulted with Dr Bobo, drains on finger removed, redressed with gauze. Pt given instructions on what to watch for, reasons to return to ED. Pt left AMA with all personal items, ambulated out with friend for ride. notified.
--- NOTE | 2016-11-11 07:58 | PCM.DC.MED ---
Discharge Summary Date of Service Nov 11, 2016 Dates of Hospitalization Date of Hospital Admission Nov 09, 2016 at 21:13 Date of Discharge: Nov 11, 2016 Providers: Admitting Physician: Ada Hicks DO Primary Care Physician: Xander Attending Physician: Ada Hicks DO Diagnosis at Time of Discharge Diagnosis at Time of Discharge Tenosynovitis right middle finger right hand Consultations Dr. Bobo orthopedic surgeon Procedures XRay, CTs & MRIs X-RAY FINGERS, TWO VIEWS IMPRESSION: No fracture or dislocation. Soft tissue swelling of the third finger. Dictated by: Didier Hatfield M.D. on 11/09/2016 at 20:31 Approved by: Didier Hatfield M.D. on 11/09/2016 at 20:32 . Brief History Snow Salcedo is a 31-year-old female with past medical history significant for IV heroin use with last use today at 3 PM who presents to [facility] Emergency Department for right third digit pain. She reports that she stuck her right third finger on something in the carpet 3 days ago. She reports that it became painful the next day. She tried to soak it in Epsom salt bath which gave her no relief and she had mild brown exudate from inoculation site. She decided to come to the emergency department as she believed it was getting worse. She now has a swollen third right digit with red streaking to palm. She is right-hand dominant. She reports +8/10 pain with movement and + 3/10 with no movement. She has tried ibuprofen and tramadol without relief. It is unknown when her last Tdap vaccination was given as she has no PCP. She denies headache, chest pain, shortness of breath, abdominal pain, nausea, vomiting, fever, chills, dysuria, diarrhea or constipation. Vital signs in the ER: Temperature 36.9. Pulse 106. Respiratory rate 20. Blood pressure 149/92. Pulse ox 99% on room air. She was given ceftriaxone 1 g 1, vancomycin per pharmacy x 1, and 1L NS. Patient was admitted to the hospital service for further evaluation and treatment. Hospital Course Snow Salcedo is a 31-year-old female with past medical history significant for IV heroin use with last use today at 3 PM and skin popping who presents to [facility] Emergency Department for right third digit pain. 1. Acute tenosynovitis of right third digit, present on admission. Active. - Patient presented afebrile with right hand erythema and warmth especially in the right third digit with streaking to palm.Patient has pain with active and passive range of motion. - Patient received Rocephin and vancomycin in the ED and will continue these antibiotics. - Right finger x-ray shows no signs of osteomyelitis. - Ordered tramadol, acetaminophen, and ibuprofen as needed for pain. Dilaudid increased to 1-2 mg every 2 hours as needed for moderate to severe pain. - Tdap vaccination has been ordered. - Orthopedic hand surgeon, Dr. Bobo took the patient to the OR today and his findings are as follows PREOPERATIVE DIAGNOSIS(ES): Right middle finger cellulitis and abscess. POSTOPERATIVE DIAGNOSIS(ES): 1. Right middle finger flexor tenosynovitis with cellulitis and abscess. 2. Bilateral forearm open wounds. PROCEDURE: 1. Incision and drainage of right middle finger flexor tenosynovitis, abscess and cellulitis. 2. Irrigation and debridement of right forearm wound. 3. Debridement of left forearm wound. Chronic problems: IV heroin use, chronic. - Counseled the patient on importance of cessation of drug use and seeking treatment, inpatient versus outpatient. - Ordered social services director evaluation. - Ordered Zofran and promethazine as needed for nausea related to heroin withdrawal. - Ordered Ativan 1 mg every 4 hours as needed for signs of withdrawal (i.e. nausea, vomiting, diarrhea, rhinorrhea, etc.). If the patient continues to show signs and symptoms of withdrawal that are unamenable to Ativan may consider starting methadone 20-30 mg daily and clonidine 0.1 BID. PRN antiemetics: Zofran and promethazine.. PRN bowel regimen: Senna and MiraLAX. PRN analgesics: Tylenol, ibuprofen, tramadol, Dilaudid. PRN anxiolytics: Ativan. High-risk medications: Dilaudid. Disposition:The patient will have her drains and the splint removed at postoperative day number one, and have her start initiating range of motion with occupational therapy. She will need to continue on IV antibiotics until definitive cultures return where she can be converted to p.o. antibiotics and discharged home. Wound Care is to see and evaluate the patient for both of her dorsal proximal forearm wounds for dressing changes. The patient left AGAINST MEDICAL ADVICE at 05 30 the morning of 11/11/2016. Exam Vital Signs (Last) Date Time Temp Pulse Resp B/P Pulse Ox O2 Delivery O2 Flow Rate FiO2 11/10/16 20:13 36.8 91 17 127/82 97 Room Air 11/10/16 15:11 8 Exam Patient left AGAINST MEDICAL ADVICE prior to being seen. Test 11/09/16 19:45 11/09/16 19:55 11/09/16 23:14 11/10/16 07:45 HCG Beta Subunit 0.500mIU/mL Erythrocyte Sedimentation Rate 31mm/hr (0-32) Total Bilirubin 0.4mg/dL (0.0-1.2) Aspartate Amino Transf (AST/SGOT) 18U/L (0-50) Alanine Aminotransferase (ALT/SGPT) 14U/L (0-32) Alkaline Phosphatase 51U/L (25-150) C-Reactive Protein 4.9mg/dL (0.0-0.5) Total Protein 7.3g/dL (6.4-8.4) Albumin 4.0g/dL (3.4-5.0) Hold Urine Received (Received) White Blood Count 9.8th/mm3 (3.8-10.1) Red Blood Count 4.41mil/mm3 (3.90-5.20) Hemoglobin 11.4g/dL (12.0-15.6) Hematocrit 35.3% (35.0-46.0) Mean Corpuscular Volume 80.0fL (81-100) Mean Corpuscular Hemoglobin 25.9pg (27.0-35.0) Mean Corpuscular Hemoglobin Concent 32.3% (32.0-37.0) Red Cell Distribution Width 15.2% (12.3-15.4) Platelet Count 332bil/L (150-400) Neutrophils (%) (Auto) 61.8% (40-74) Lymphocytes (%) (Auto) 28.9% (14-46) Monocytes (%) (Auto) 7.7% (4-12) Eosinophils (%) (Auto) 0.8% (0-5) Basophils (%) (Auto) 0.4% (0-3) Sodium Level 142mEq/L (134-144) Potassium Level 4.6mEq/L (3.5-5.2) Chloride Level 109mEq/L (97-108) Carbon Dioxide Level 20mmol/L (18-29) Blood Urea Nitrogen 10mg/dL (6-20) Creatinine 0.67mg/dL (0.57-1.00) Estimat Glomerular Filtration Rate 148mL/min (>59) Glucose Level 123mg/dL (60-99) Calcium Level 8.9mg/dL (8.5-10.1) Test 11/10/16 23:15 Vancomycin Level Trough 8.5mcg/mL Microbiology Results Blood culture 2 pending. . Discharge Medications No Active Prescriptions or Reported Meds Followup Plan Disposition: Patient left AGAINST MEDICAL ADVICE. Time spent The patient left AGAINST MEDICAL ADVICE. Jason Szymanski MD Nov 11, 2016 07:58
[2016-11-11] MEDS ORDERED: Vancomycin Inj 1,000 MG in IV Premix 1 EACH IV SCH (08:30)
[2016-11-12] MEDS ORDERED: Vancomycin Serum Trough XX ONE (08:00)
== END 2016-11-11 05:00 | disposition left against medical advice (07) | DRG 317 ==
LOC: SED 18:21 → OSC 21:13
PROVIDERS: ADMIT Internal Medicine; ATTEND Internal Medicine
PROC: 0L970ZX Drainage of Right Hand Tendon, Open Approach, Diagnostic (ICD-10-PCS; principal; 2016-11-09)
PROC: 0JDH3ZZ Extraction of Left Lower Arm Subcutaneous Tissue and Fascia, Percutaneous Approach (ICD-10-PCS; 2016-11-09)
PROC: 0JDG3ZZ Extraction of Right Lower Arm Subcutaneous Tissue and Fascia, Percutaneous Approach (ICD-10-PCS; 2016-11-09)
DX: M65.141 Other infective (teno)synovitis, right hand (principal); S51.831A Puncture wound without foreign body of right forearm, initial encounter; F11.10 Opioid abuse, uncomplicated; F17.200 Nicotine dependence, unspecified, uncomplicated; X58.XXXA Exposure to other specified factors, initial encounter; Y92.9 Unspecified place or not applicable